=== PATIENT | female | born 1930 | race Caucasian/White ===

== ENCOUNTER 2018-09-28 18:46 | Emergency (ER) | payer OTHER ==
[~2018-09-28] VITALS: Ht 170.2 cm; Wt 108.9 kg
[~2018-09-28 18:46] MED LIST: ACET-2165 PO; ALPR0.25 PO; AMI200 PO; APIX5TAB PO; CIPR-211 PO; COR12.5 PO; ESCI20TA PO; FENO160 PO; FLOR.1 GT; FOLI-43 PO; FURO20TA4 PO; INSU100V9 SUBCUT; ISOS20TA8 PO; NITSL SL; POTA10TA15 PO; PRAV40TA PO; UBID50TA3 PO
--- NOTE | 2018-09-28 18:48 | NUR ---
Placed in room 02 . Placed on youth nutritional monitor, blood pressure machine and pulse oximeter. To gown for exam. Side rails up.
[2018-09-28 18:51] VITALS: BP_SYST 151
--- NOTE | 2018-09-28 18:57 | NUR ---
Pt AAOx2 presents to ED via BLS from Rehab c/o cough, congestion, and runny nose. Denies pain n/v/d. Skin dry and warm, breathing even and unlabored. No other injuries/complaints per pt/noted. Will continue to monitor.
--- NOTE | 2018-09-28 19:40 | NUR ---
Dr. Adan bedside for Pt eval
--- NOTE | 2018-09-28 19:47 | NUR ---
Pt BIBA from facility to ED C/O worsening cough productive of dark green phlegm associated with fever, congestion, and generalized body aches for 1 week. Per family at bedside, patient has also been complaining of a mild headache since Saturday (3 days). Pt was reportedly evaluated by a Nurse Practitioner at the facility on Saturday, where Pt's exam was normal. Family claim that symptoms have worsened over the past 48 hours and Pt's appetite and activity level has decreased. Of note, Pt had surgery on March 2018 to repair a shattered femur after a fall. Pt is currently in physical therapy, but unable to ambulate normally and is sedentary. No other complaints and or injuries noted. VSS no s/s of acute distress. Resting on gurney with rails up
[2018-09-28 20:20] LABS: BASOPHILS % (AUTO) 0.8 % (0.0-2.0); EOSINOPHILS # (AUTO) 0.2 K/uL (0.0-0.4); EOSINOPHILS % (AUTO) 2.8 % (0.0-4.0); HEMATOCRIT 36.3 % (36-48); HEMOGLOBIN 11.9 g/dL (12.0-16.0); LYMPHOCYTES # (AUTO) 1.5 K/uL (1.0-5.5); LYMPHOCYTES % (AUTO) 25.2 % (20.5-51.5); MEAN CORPUSCULAR HEMOGLOBIN 29 pg (27-31); MEAN CORPUSCULAR HGB CONC 33 % (32-36); MEAN CORPUSCULAR VOLUME 88 fL (79.0-98.0); MONOCYTES # (AUTO) 0.5 K/uL (0.0-1.0); MONOCYTES % (AUTO) 9.1 % (1.7-9.3); NEUTROPHILS # (AUTO) 3.7 K/uL (1.8-7.7); NEUTROPHILS % (AUTO) 62.1 % (40.0-70.0); PLATELET COUNT (AUTO) 210 K/uL (130-430); RED BLOOD CELL COUNT(AUTO) 4.12 MIL/uL (4.2-6.2); RED CELL DISTRIBUTION WIDTH 20.5 % (9.0-15.0); WHITE BLOOD COUNT (AUTO) 5.9 K/uL (4.8-10.8)
[2018-09-28 20:25] LABS: ANION GAP 4 (5-15); CALCIUM 8.5 mg/dL (8.4-11.0); CHLORIDE 104 mmol/L (98-107); GLUCOSE 204 mg/dL (70-99); POTASSIUM 4.1 mmol/L (3.5-5.1); SODIUM SERUM 141 mmol/L (136-145); UREA NITROGEN, BLOOD 22 mg/dL (8-21)
[2018-09-28 20:34] LABS: ALANINE AMINOTRANSFERASE 19 U/L (12-78); ALBUMIN 2.2 g/dL (3.4-4.8); ASPARTATE AMINOTRANSFERASE 15 U/L (10-37); TOTAL BILIRUBIN 0.2 mg/dL (0.0-1.0)
[2018-09-28] MEDS ORDERED: IOHEXOL 350 mgI/mL, 150 ML INFUS..BTL IV ONE (22:32)
--- NOTE | 2018-09-28 22:54 | NUR ---
Pt taken to Radiology in stable condition
--- NOTE | 2018-09-28 23:11 | NUR ---
Pt back from Radiology, well tolerated
[2018-09-28] MEDS ORDERED: IOHEXOL 50 ML IV ONE (23:15)
--- NOTE | 2018-09-29 00:25 | NUR ---
Pt VSS no s/s of acute distress. Resting on gurney with rails up
--- NOTE | 2018-09-29 01:55 | NUR ---
s/w Aletha from [facility], gave report and expected ETA
[2018-09-29 02:30] VITALS: BP_SYST 151
--- NOTE | 2018-09-29 02:30 | NUR ---
Patient given written and verbal discharge instructions and verbalizes understanding. ER MD discussed with patient the results and treatment provided. Patient in stable condition. ID arm band removed. IV catheter removed intact and dressing applied, no active bleeding. Rx of Zithromax given. Patient educated on pain management and to follow up with PMD. Pain Scale 0/10. Opportunity for questions provided and answered. Medication side effect fact sheet provided.
== END 2018-09-29 02:30 | disposition home or self-care (01) ==
LOC: SED 18:46
DX: J20.9 Acute bronchitis, unspecified (principal); Z88.2 Allergy status to sulfonamides; Z88.5 Allergy status to narcotic agent; Z88.1 Allergy status to other antibiotic agents; Z88.8 Allergy status to other drugs, medicaments and biological substances; Z79.01 Long term (current) use of anticoagulants; Z79.899 Other long term (current) drug therapy
CPT/HCPCS: 36415; 71045; 71275; 80053; 82550; 84484; 85025; 85379; 93005; 99284; Q9967 ×2